=== PATIENT | male | born 1975 | race Caucasian/White ===

== ENCOUNTER 2017-08-20 16:49 | Emergency (ER) | payer MEDICAID ==
[~2017-08-20] VITALS: Ht 172.7 cm; Wt 123.0 kg
[2017-08-20 17:00] VITALS: BP 166/117
== END 2017-08-20 20:30 | disposition left against medical advice (07) ==
LOC: ER 17:28
DX: R06.02 Shortness of breath (principal); Z53.21 Procedure and treatment not carried out due to patient leaving prior to being seen by health care provider

== ENCOUNTER 2018-02-23 08:10 | Emergency (ER) | payer MEDICAID ==
[~2018-02-23] VITALS: Ht 175.3 cm; Wt 108.0 kg
[~2018-02-23 08:10] MED LIST: ASPI-1159 PO; CARV12.545 PO; FURO40TA5 PO; LOSA25TA12 PO
[2018-02-23 09:39] LABS: BASOPHILS % 1.1 % (0.0-2.0); EOSINOPHILS % 2.7 % (0.0-5.0); HEMATOCRIT. 45.8 % (42.0-52.0); HEMOGLOBIN. 15.3 g/dL (14.0-18.0); LYMPHOCYTES % 33.3 % (20.0-50.0); MEAN CORPUSCULAR HEMOGLOBIN 32.2 pg (28.0-32.0); MEAN CORPUSCULAR VOLUME 96.4 fL (80.0-94.0); MEAN PLATELET VOLUME 7.5 fl (7.4-10.4); MONOCYTES % 6.8 % (2.0-8.0); NEUTROPHILS % 56.1 % (40.0-76.0); PLATELET 244 x1000/uL (130-400); RED BLOOD CELL COUNT 4.76 mill/uL (4.7-6.1); RED CELL DISTRIBUTION WIDTH 16.5 % (11.6-14.6)
[2018-02-23] MEDS ORDERED: MAGNESIUM/ALUMINUM HYDROXIDE/SIMETHICONE 30ML UDC PO STA (09:42)
[2018-02-23] MEDS ORDERED: VISCOUS LIDOCAINE 2% 15 ML UDC PO STA (09:42)
[2018-02-23 09:45] LABS: INR 1.4; PROTHROMBIN TIME 14.6 sec (9.4-11.6)
[2018-02-23] MEDS ORDERED: FAMOTIDINE 20MG/2ML VIAL IV ONE (09:45)
[2018-02-23 09:46] LABS: CHLORIDE 105 mEq/L (98-107)
[2018-02-23 13:00] VITALS: BP 157/101
== END 2018-02-23 13:03 | disposition left against medical advice (07) ==
LOC: ER 08:29 → CANBEDREQ 13:05
DX: R07.9 Chest pain, unspecified (principal); I11.0 Hypertensive heart disease with heart failure; I50.9 Heart failure, unspecified; F17.200 Nicotine dependence, unspecified, uncomplicated; E11.9 Type 2 diabetes mellitus without complications; Z79.82 Long term (current) use of aspirin
CPT/HCPCS: 36415; 71045; 80048; 83880; 84484; 85025; 85610; 93005; 96374; 99285

== ENCOUNTER 2018-12-07 08:24 | Inpatient (IN) | payer MEDICAID ==
[~2018-12-07] VITALS: Ht 172.7 cm; Wt 109.8 kg
[2018-12-07] MEDS ORDERED: IPRATROPIUM BROMIDE (0.02%) 0.5MG/2.5ML NEB HHN STA (08:44)
[2018-12-07] MEDS ORDERED: ALBUTEROL (0.083%) 2.5MG/3ML NEB HHN STA (08:44)
[2018-12-07] MEDS ORDERED: LEVOFLOXACIN 750MG PREMIX 150 ML IV ONE (08:45)
[2018-12-07] MEDS ORDERED: FUROSEMIDE 20MG/2ML VIAL IVP ONE (08:45)
[2018-12-07 09:06] LABS: BASOPHILS % 0.8 % (0.0-2.0); HEMATOCRIT. 46.7 % (42.0-52.0); HEMOGLOBIN. 15.6 g/dL (14.0-18.0); LYMPHOCYTES % 25.5 % (20.0-50.0); MEAN CORPUSCULAR HEMOGLOBIN 33.3 pg (28.0-32.0); MEAN CORPUSCULAR VOLUME 100.1 fL (80.0-94.0); MEAN PLATELET VOLUME 7.6 fl (7.4-10.4); MONOCYTES % 14.7 % (2.0-8.0); PLATELET 209 x1000/uL (130-400); RED BLOOD CELL COUNT 4.67 mill/uL (4.7-6.1)
[2018-12-07 09:12] LABS: CHLORIDE 102 mEq/L (98-107)
[2018-12-07 09:27] LABS: D-DIMER 3.69 mg/L FEU (<0.50); INR 1.8; PARTIAL THROMBOPLASTIN TIME 28.2 sec (23.4-31.0); PROTHROMBIN TIME 17.6 sec (9.1-11.1)
[2018-12-07 09:59] LABS: CLARITY URINE CLEAR (CLEAR); COLOR URINE DARK YELLOW (YELLOW); KETONES URINE NEGATIVE (NEGATIVE); LEUKOCYTE ESTERASE URINE NEGATIVE (NEGATIVE); NITRITE URINE NEGATIVE (NEGATIVE); OCCULT BLOOD URINE NEGATIVE (NEGATIVE); PROTEIN URINE 3+ (NEGATIVE); SPECIFIC GRAVITY URINE 1.023 (1.005-1.030)
[2018-12-07] MEDS ORDERED: IPRATROPIUM/ALBUTEROL 0.5-3(2.5)MG/3ML NEB HHN PRN (10:15)
[2018-12-07] MEDS ORDERED: NICOTINE 14MG PATCH TD SCH (10:15)
[2018-12-07] MEDS ORDERED: BUDESONIDE 0.5MG/2ML NEB HHN SCH ×2 (10:15→17:00)
[2018-12-07 10:48] LABS: *AMPHETAMINES SCREEN URINE NEGATIVE (NEGATIVE); *BARBITURATES SCREEN URINE NEGATIVE (NEGATIVE); *BENZODIAZEPINES SCREEN URINE NEGATIVE (NEGATIVE); *COCAINE SCREEN URINE NEGATIVE (NEGATIVE); METHADONE URINE SCREEN NEGATIVE (NEGATIVE); OPIATES URINE SCREEN NEGATIVE (NEGATIVE)
[2018-12-07 10:49] LABS: CANNABINOID URINE SCREEN NEGATIVE (NEGATIVE); PHENCYCLIDINE URINE SCREEN NEGATIVE (NEGATIVE)
[2018-12-07 11:06] LABS: HEPATITIS B SURFACE ANTIGEN NEGATIVE
[2018-12-07 11:46] LABS: HEPATITIS A AB IGM NEGATIVE (NEGATIVE)
[2018-12-07] MEDS ORDERED: IPRATROPIUM/ALBUTEROL 0.5-3(2.5)MG/3ML NEB HHN SCH (12:00)
[2018-12-07] MEDS ORDERED: NA PHOS,M-B/NA PHOS,DI-BA ENEMA 118ML PR PRN (13:00)
[2018-12-07] MEDS ORDERED: ACETAMINOPHEN 325MG TABLET PO PRN (13:00)
[2018-12-07] MEDS ORDERED: MAGNESIUM/ALUMINUM HYDROXIDE/SIMETHICONE 30ML UDC PO PRN (13:00)
[2018-12-07] MEDS ORDERED: DOCUSATE SODIUM 100MG CAPSULE PO PRN (13:00)
[2018-12-07] MEDS ORDERED: LORAZEPAM 0.5MG TABLET PO PRN (13:00)
[2018-12-07] MEDS ORDERED: NITROGLYCERIN 0.4MG TABLET SL SL PRN (13:00)
[2018-12-07] MEDS ORDERED: ENOXAPARIN 40MG/0.4ML SYR SUBCUT SCH (13:00)
[2018-12-07] MEDS ORDERED: CLONIDINE 0.1MG TABLET PO PRN (13:00)
[2018-12-07] MEDS ORDERED: ONDANSETRON HCL 4MG/2ML INJ IV PRN (13:00)
[2018-12-07] MEDS ORDERED: GUAIFENESIN 200MG/10ML SUGAR FREE UDC PO PRN (13:00)
[2018-12-07] MEDS ORDERED: GUAIFENESIN/DM 600MG/30MG ER TAB 12HR PO SCH (13:00)
[2018-12-07] MEDS ORDERED: ZOLPIDEM TARTRATE 5MG TABLET PO PRN (13:00)
[2018-12-07 15:03] LABS: CREATINE KINASE MB FRACTION 5.1 ng/mL (0.5-3.6)
[2018-12-07 15:55] VITALS: BP 127/91
[2018-12-07 16:01] VITALS: BP 127/91
[2018-12-07] MEDS: GUAIFENESIN/DM 600MG/30MG ER TAB 12HR PO SCH (16:49)
[2018-12-07] MEDS: ENOXAPARIN 30MG/0.3ML SYR SUBCUT SCH (16:49)
[2018-12-07] MEDS: NICOTINE 14MG PATCH TD SCH (16:52)
[2018-12-07 20:00] VITALS: BP 125/78
[2018-12-07] MEDS: SPIRONOLACTONE 25MG TABLET PO SCH (20:59)
[2018-12-07] MEDS: IPRATROPIUM/ALBUTEROL 0.5-3(2.5)MG/3ML NEB HHN SCH (23:39)
[2018-12-07 23:59] VITALS: BP 138/89
[2018-12-08 00:51] LABS: CREATINE KINASE MB FRACTION 3.8 ng/mL (0.5-3.6)
[2018-12-08 04:00] VITALS: BP 122/90
[2018-12-08] MEDS: IPRATROPIUM/ALBUTEROL 0.5-3(2.5)MG/3ML NEB HHN SCH ×2 (04:29→08:11)
[2018-12-08] MEDS: ENOXAPARIN 30MG/0.3ML SYR SUBCUT SCH (05:40)
[2018-12-08 08:00] VITALS: BP 148/99
[2018-12-08] MEDS ORDERED: FUROSEMIDE 40MG/4ML VIAL IVP SCH (09:00)
[2018-12-08] MEDS: NICOTINE 14MG PATCH TD SCH (09:00)
[2018-12-08] MEDS ORDERED: AZITHROMYCIN 500 MG TABLET PO SCH (09:00)
[2018-12-08] MEDS ORDERED: ASPIRIN 325MG EC TABLET PO SCH (09:00)
[2018-12-08] MEDS: SPIRONOLACTONE 25MG TABLET PO SCH (09:33)
[2018-12-08] MEDS: GUAIFENESIN/DM 600MG/30MG ER TAB 12HR PO SCH (09:33)
[2018-12-08 10:32] VITALS: BP 148/99
== END 2018-12-08 11:03 | disposition home or self-care (01) | DRG 194 ==
LOC: ER 08:24 → EDBEDREQ 09:58 → 6WST 13:29 → EDBEDREQSVC 13:31 → ENRESERV 14:04
PROVIDERS: ADMIT Internal Medicine; ATTEND Internal Medicine
DX: I11.0 Hypertensive heart disease with heart failure (principal); J96.00 Acute respiratory failure, unspecified whether with hypoxia or hypercapnia; N17.0 Acute kidney failure with tubular necrosis; J44.1 Chronic obstructive pulmonary disease with (acute) exacerbation; D68.9 Coagulation defect, unspecified; E44.1 Mild protein-calorie malnutrition; R17 Unspecified jaundice; I50.43 Acute on chronic combined systolic (congestive) and diastolic (congestive) heart failure; I42.9 Cardiomyopathy, unspecified; D72.821 Monocytosis (symptomatic); E11.9 Type 2 diabetes mellitus without complications; F17.210 Nicotine dependence, cigarettes, uncomplicated; Z68.36 Body mass index [BMI] 36.0-36.9, adult; Z95.810 Presence of automatic (implantable) cardiac defibrillator; Z88.8 Allergy status to other drugs, medicaments and biological substances; Z79.899 Other long term (current) drug therapy
CPT/HCPCS: 36415; 71045; 76700; 78582; 80061; 80305; 82550; 82553; 82962; 83036; 83605; 83880; 84145; 84484; 85379; 86705; 86709; 86803; 87340; 87804; 93005; 93306; 93880; 93970; 94640; 99285; A9558; J1650; J1940; J1956; J7611; J7620; J7626

== ENCOUNTER 2018-12-19 04:27 | Emergency (ER) | payer MEDICAID ==
[~2018-12-19] VITALS: Ht 170.2 cm; Wt 73.0 kg
[2018-12-19 04:37] VITALS: BP 116/90
== END 2018-12-19 08:02 | disposition left against medical advice (07) ==
LOC: ER 04:27
DX: Z53.21 Procedure and treatment not carried out due to patient leaving prior to being seen by health care provider (principal)

== ENCOUNTER 2019-05-29 04:30 | Emergency (ER) | payer MEDICAID ==
[~2019-05-29] VITALS: Ht 172.7 cm; Wt 106.0 kg
[~2019-05-29 04:30] MED LIST changes: -ASPI-1159 PO; +ASPI-1393 PO; -LOSA25TA12 PO; +LOSA25TA26 PO
[2019-05-29 05:45] LABS: MEAN PLATELET VOLUME 7.3 fl (7.4-10.4)
[2019-05-29 05:49] LABS: CHLORIDE 107 mEq/L (98-107)
[2019-05-29 06:09] LABS: HEMATOCRIT. 49.9 % (42.0-52.0); HEMOGLOBIN. 17.3 g/dL (14.0-18.0); MEAN CORPUSCULAR HEMOGLOBIN 33.7 pg (28.0-32.0); MEAN CORPUSCULAR VOLUME 97.4 fL (80.0-94.0); RED BLOOD CELL COUNT 5.12 mill/uL (4.7-6.1); RED CELL DISTRIBUTION WIDTH 16.6 % (11.6-14.6)
[2019-05-29] MEDS ORDERED: FLUORESCEIN SODIUM 1MG/STRIP RIGHTEYE ONE (06:30)
[2019-05-29] MEDS ORDERED: TETRACAINE 0.5% OPHTH DROPS 4ML RIGHTEYE ONE (06:30)
[2019-05-29] MEDS ORDERED: ALBUTEROL (0.5%) 2.5MG/0.5ML NEB HHN ONE (06:45)
[2019-05-29 07:18] LABS: PLATELET ESTIMATE NORMAL
[2019-05-29 07:21] LABS: PLATELET 91 x1000/uL (130-400)
[2019-05-29 07:25] VITALS: BP 134/90
== END 2019-05-29 09:11 | disposition left against medical advice (07) ==
LOC: ER 04:30
DX: R05 Cough (principal); R06.02 Shortness of breath; L29.9 Pruritus, unspecified; R23.8 Other skin changes; I50.9 Heart failure, unspecified; J45.909 Unspecified asthma, uncomplicated
CPT/HCPCS: 36415; 71045; 80053; 83880; 84484; 85025; 93005; 94640; 99284; J7611; Z7610

== ENCOUNTER 2020-12-26 09:45 | Inpatient (IN) | payer MEDICAID ==
[~2020-12-26] VITALS: Ht 172.7 cm; Wt 108.9 kg
[~2020-12-26 09:45] MED LIST changes: -ASPI-1393 PO; +ASPI-1497 PO
[2020-12-26] MEDS ORDERED: FUROSEMIDE 40MG/4ML VIAL IVP ONE (10:15)
[2020-12-26 10:37] LABS: BASOPHILS % 1.5 % (0.0-2.0); EOSINOPHILS % 2.4 % (0.0-5.0); HEMATOCRIT. 45.2 % (42.0-52.0); HEMOGLOBIN. 14.7 g/dL (14.0-18.0); LYMPHOCYTES % 35.4 % (20.0-50.0); MEAN CORPUSCULAR HEMOGLOBIN 32.1 pg (28.0-32.0); MEAN CORPUSCULAR VOLUME 98.8 fL (80.0-94.0); MEAN PLATELET VOLUME 7.3 fl (7.4-10.4); MONOCYTES % 7.9 % (2.0-8.0); NEUTROPHILS % 52.8 % (40.0-76.0); PLATELET 191 x1000/uL (130-400); RED BLOOD CELL COUNT 4.58 mill/uL (4.7-6.1); RED CELL DISTRIBUTION WIDTH 19.3 % (11.6-14.6)
[2020-12-26 10:44] LABS: CHLORIDE 103 mEq/L (98-107)
[2020-12-26] MEDS: POTASSIUM CHLORIDE 20MEQ TABLET SR PO SCH (13:06)
[2020-12-26] MEDS: CARVEDILOL 3.125 MG TABLET PO SCH ×2 (13:30→21:14)
[2020-12-26] MEDS ORDERED: MAGNESIUM/ALUMINUM HYDROXIDE/SIMETHICONE 30ML UDC PO PRN (14:00)
[2020-12-26] MEDS ORDERED: ACETAMINOPHEN 325MG TABLET PO PRN (14:00)
[2020-12-26] MEDS ORDERED: DOCUSATE SODIUM 100MG CAPSULE PO PRN (14:00)
[2020-12-26] MEDS ORDERED: HYDROCODONE/ACETAMINOPHEN 5/325MG TABLET PO PRN (14:00)
[2020-12-26] MEDS ORDERED: CLONIDINE 0.1MG TABLET PO PRN (14:00)
[2020-12-26] MEDS ORDERED: ENOXAPARIN 40MG/0.4ML SYR SUBCUT SCH (14:00)
[2020-12-26] MEDS ORDERED: ONDANSETRON HCL 4MG/2ML INJ IV PRN (14:00)
[2020-12-26 14:52] VITALS: BP 115/68
[2020-12-26 14:55] VITALS: BP 115/68
[2020-12-26] MEDS ORDERED: ALBU6.7H9 INH (15:16)
[2020-12-26] MEDS ORDERED: ALBUTEROL 6.7GM HFA INHALER ORI PRN (16:15)
[2020-12-26 16:20] VITALS: BP 120/69
[2020-12-26] MEDS: FUROSEMIDE 40MG/4ML VIAL IVP SCH (17:20)
[2020-12-26 20:10] LABS: CLARITY URINE CLEAR (CLEAR); COLOR URINE YELLOW (YELLOW); KETONES URINE NEGATIVE (NEGATIVE); LEUKOCYTE ESTERASE URINE NEGATIVE (NEGATIVE); NITRITE URINE NEGATIVE (NEGATIVE); OCCULT BLOOD URINE NEGATIVE (NEGATIVE); PH URINE 6.5 (4.5-8.0); PROTEIN URINE NEGATIVE (NEGATIVE); SPECIFIC GRAVITY URINE 1.007 (1.005-1.030)
[2020-12-26 20:27] VITALS: BP 132/86
[2020-12-26 20:55] LABS: *COCAINE SCREEN URINE NEGATIVE (NEGATIVE)
[2020-12-26 20:56] LABS: *AMPHETAMINES SCREEN URINE NEGATIVE (NEGATIVE); *BARBITURATES SCREEN URINE NEGATIVE (NEGATIVE); *BENZODIAZEPINES SCREEN URINE NEGATIVE (NEGATIVE); CANNABINOID URINE SCREEN NEGATIVE (NEGATIVE); METHADONE URINE SCREEN NEGATIVE (NEGATIVE); OPIATES URINE SCREEN NEGATIVE (NEGATIVE); PHENCYCLIDINE URINE SCREEN NEGATIVE (NEGATIVE)
[2020-12-26] MEDS: ENOXAPARIN 30MG/0.3ML SYR SUBCUT SCH ×2 (21:00→21:14)
[2020-12-27] VITALS: BP 111/83
[2020-12-27] MEDS: IPRATROPIUM/ALBUTEROL 0.5-3(2.5)MG/3ML NEB HHN PRN ×2 (03:59→18:33)
[2020-12-27 04:00] VITALS: BP 127/94
[2020-12-27] MEDS: FUROSEMIDE 40MG/4ML VIAL IVP SCH ×2 (06:19→17:28)
[2020-12-27 06:41] LABS: BASOPHILS % 1.4 % (0.0-2.0); EOSINOPHILS % 1.5 % (0.0-5.0); HEMATOCRIT. 42.7 % (42.0-52.0); HEMOGLOBIN. 14.2 g/dL (14.0-18.0); LYMPHOCYTES % 38.2 % (20.0-50.0); MEAN CORPUSCULAR HEMOGLOBIN 32.1 pg (28.0-32.0); MEAN CORPUSCULAR VOLUME 96.8 fL (80.0-94.0); MEAN PLATELET VOLUME 8.3 fl (7.4-10.4); MONOCYTES % 9.7 % (2.0-8.0); NEUTROPHILS % 49.2 % (40.0-76.0); PLATELET 143 x1000/uL (130-400); RED BLOOD CELL COUNT 4.41 mill/uL (4.7-6.1); RED CELL DISTRIBUTION WIDTH 19.1 % (11.6-14.6)
[2020-12-27] MEDS: OMEPRAZOLE 20MG CAPSULE EXTENDED RELEASE PO SCH (07:15)
[2020-12-27 07:54] LABS: PHOSPHORUS 3.4 mg/dL (2.5-4.9)
[2020-12-27 08:05] VITALS: BP 96/74
[2020-12-27] MEDS: CARVEDILOL 3.125 MG TABLET PO SCH ×2 (08:30→20:34)
[2020-12-27] MEDS: ENOXAPARIN 30MG/0.3ML SYR SUBCUT SCH ×2 (09:00→20:29)
[2020-12-27] MEDS: POTASSIUM CHLORIDE 20MEQ TABLET SR PO SCH (10:02)
[2020-12-27 12:00] VITALS: BP 119/81
[2020-12-27 13:10] LABS: HEPATITIS B SURFACE ANTIGEN NEGATIVE
[2020-12-27 13:36] LABS: HEPATITIS A AB IGM NEGATIVE (NEGATIVE)
[2020-12-27 16:16] VITALS: BP 129/97
[2020-12-27 20:37] VITALS: BP 121/86
[2020-12-28] VITALS: BP 136/86
[2020-12-28 04:00] VITALS: BP 124/78
[2020-12-28] MEDS: OMEPRAZOLE 20MG CAPSULE EXTENDED RELEASE PO SCH (05:45)
[2020-12-28] MEDS: FUROSEMIDE 40MG/4ML VIAL IVP SCH (06:20)
[2020-12-28 07:14] LABS: EOSINOPHILS % 1.1 % (0.0-5.0); HEMATOCRIT. 45.6 % (42.0-52.0); HEMOGLOBIN. 14.6 g/dL (14.0-18.0); LYMPHOCYTES % 42.8 % (20.0-50.0); MEAN CORPUSCULAR HEMOGLOBIN 31.1 pg (28.0-32.0); MEAN CORPUSCULAR VOLUME 97.3 fL (80.0-94.0); MEAN PLATELET VOLUME 8.1 fl (7.4-10.4); MONOCYTES % 11.2 % (2.0-8.0); NEUTROPHILS % 43.9 % (40.0-76.0); PLATELET 166 x1000/uL (130-400); RED BLOOD CELL COUNT 4.69 mill/uL (4.7-6.1); RED CELL DISTRIBUTION WIDTH 19.3 % (11.6-14.6)
[2020-12-28 07:59] LABS: PHOSPHORUS 3.2 mg/dL (2.5-4.9)
[2020-12-28 08:00] VITALS: BP 125/85
[2020-12-28] MEDS: ENOXAPARIN 30MG/0.3ML SYR SUBCUT SCH (09:00)
[2020-12-28] MEDS: CARVEDILOL 3.125 MG TABLET PO SCH (09:15)
[2020-12-28] MEDS: POTASSIUM CHLORIDE 20MEQ TABLET SR PO SCH (09:15)
[2020-12-28] MEDS ORDERED: FURO-151 MT (11:42)
[2020-12-28] MEDS ORDERED: LOSA25TA26 MT (11:42)
[2020-12-28] MEDS ORDERED: POTA20TA82 PO (11:42)
[2020-12-28] MEDS ORDERED: CARV12.545 MT (11:42)
[2020-12-28 12:00] VITALS: BP 116/86
[2020-12-28 14:14] VITALS: BP 116/86
[2020-12-28 16:00] VITALS: BP 126/84
[2020-12-28] MEDS ORDERED: FAMOTIDINE 20MG TABLET PO SCH (21:00)
[2020-12-28] MEDS ORDERED: CARVEDILOL 6.25 MG TABLET PO SCH (21:00)
== END 2020-12-28 16:50 | disposition home or self-care (01) | DRG 133 ==
LOC: ER 09:54 → 5WST 12:16 → ENRESERV 13:18 → 7WST 14:13 → 5WST 22:07
PROVIDERS: ADMIT Internal Medicine; ATTEND Internal Medicine
DX: J96.00 Acute respiratory failure, unspecified whether with hypoxia or hypercapnia (principal); D70.9 Neutropenia, unspecified; I11.0 Hypertensive heart disease with heart failure; I27.20 Pulmonary hypertension, unspecified; I42.9 Cardiomyopathy, unspecified; I50.9 Heart failure, unspecified; J44.9 Chronic obstructive pulmonary disease, unspecified; N17.9 Acute kidney failure, unspecified; K70.9 Alcoholic liver disease, unspecified; R74.01 Elevation of levels of liver transaminase levels; E80.6 Other disorders of bilirubin metabolism; Z20.822 Contact with and (suspected) exposure to COVID-19; Z95.810 Presence of automatic (implantable) cardiac defibrillator; Z88.2 Allergy status to sulfonamides; Z88.8 Allergy status to other drugs, medicaments and biological substances; Z79.84 Long term (current) use of oral hypoglycemic drugs; Z79.899 Other long term (current) drug therapy; R65.11 Systemic inflammatory response syndrome (SIRS) of non-infectious origin with acute organ dysfunction
CPT/HCPCS: 36415; 71045; 76705; 80048; 80053; 80061; 80076; 80305; 81003; 82248; 83735; 83880; 84100; 84443; 84450; 84484; 85025; 86705; 86709; 86803; 87340; 93005; 93306; 94640; 99291; J1650; J1940; U0003

== ENCOUNTER 2025-06-20 07:33 | Inpatient (IN) | payer OTHER, MEDICAID ==
[~2025-06-20] VITALS: Ht 170.2 cm; Wt 101.2 kg
[~2025-06-20 07:33] MED LIST changes: +ALBU6.7H3 INH; +CARV12.545 MT; +FURO-151 MT; +LOSA25TA26 MT; +POTA-204 PO; +RIVA10TA PO; +SACU1TAB PO
[2025-06-20] MEDS: MORPHINE SULFATE 4 MG/ML INJ (FOR IV/IM USE) IV ONE (08:07)
[2025-06-20 08:10] LABS: BASOPHILS % 0.6 % (0.0-2.0); EOSINOPHILS % 2.1 % (0.0-5.0); HEMATOCRIT. 47.6 % (42.0-52.0); HEMOGLOBIN. 15.8 g/dL (14.0-18.0); LYMPHOCYTES % 31.0 % (20.0-50.0); MEAN PLATELET VOLUME 7.6 fl (7.4-10.4); MONOCYTES % 10.8 % (2.0-8.0); NEUTROPHILS % 55.5 % (40.0-76.0); PLATELET 217 x1000/uL (130-400); RED BLOOD CELL COUNT 5.09 mill/uL (4.7-6.1); RED CELL DISTRIBUTION WIDTH 14.2 % (11.6-14.6)
[2025-06-20 08:27] LABS: CREATININE 1.4 mg/dL (0.6-1.3); TROPONIN I HIGH SENSITIVITY 24 ng/L (3.0-53)
[2025-06-20 08:28] LABS: UREA NITROGEN BLOOD 14 mg/dL (9-23)
[2025-06-20 08:29] LABS: ASPARTATE AMINOTRANSFERASE 38 IU/L (<34)
[2025-06-20 08:30] LABS: BILIRUBIN DIRECT 0.2 mg/dL (<=3.0); BILIRUBIN TOTAL 0.7 mg/dL (0.1-1.0); PROTEIN TOTAL 7.4 g/dL (6.0-8.3)
[2025-06-20] MEDS ORDERED: IOHEXOL-350 100 ML BOTTLE ONE (09:08)
[2025-06-20 10:16] LABS: TROPONIN I HIGH SENSITIVITY 22 ng/L (3.0-53)
[2025-06-20] MEDS: FUROSEMIDE 40MG TABLET PO SCH (10:28)
[2025-06-20] MEDS: HYDROCODONE/ACETAMINOPHEN 5/325MG TABLET PO PRN (10:28)
[2025-06-20] MEDS: PANTOPRAZOLE 40MG DR TABLET PO SCH (10:28)
[2025-06-20] MEDS ORDERED: NALOXONE HCL 0.4MG/ML VIAL IV PRN (10:30)
[2025-06-20] MEDS ORDERED: ONDANSETRON HCL 4MG/2ML INJ IV PRN (10:30)
[2025-06-20 12:00] VITALS: BP 155/86; PULSE 65; RESP 18; TEMP 36.2512
[2025-06-20] MEDS: KETOROLAC 15MG/ML VIAL IV NR (14:34)
[2025-06-20 16:00] VITALS: BP 124/60; PULSE 77; RESP 18; TEMP 36.2; O2SAT 97
[2025-06-20 16:55] LABS: TROPONIN I HIGH SENSITIVITY 18 ng/L (3.0-53)
[2025-06-20] MEDS ORDERED: KETO15CR2 TP (18:20)
[2025-06-20] MEDS ORDERED: HYDR-4346 MT (18:20)
[2025-06-20] MEDS ORDERED: ALLO100T MT (18:20)
[2025-06-20] MEDS ORDERED: TERB30CR8 TP (18:20)
[2025-06-20] MEDS ORDERED: ACET-2708 MT (18:20)
[2025-06-20] MEDS ORDERED: CARV12.545 PO (18:20)
[2025-06-20] MEDS ORDERED: SILD20TA41 PO (18:20)
[2025-06-20] MEDS ORDERED: DAPA10TA PO (18:20)
[2025-06-20] MEDS ORDERED: EPLE25TA22 PO (18:20)
[2025-06-20] MEDS ORDERED: SACU1TAB MT (18:20)
[2025-06-20] MEDS ORDERED: ATOR-2 MT (18:20)
[2025-06-20] MEDS ORDERED: SEMA2PEN (18:20)
[2025-06-20] MEDS ORDERED: ASPI-1497 PO (18:21)
[2025-06-20 20:00] VITALS: BP 138/81; PULSE 84; RESP 18; TEMP 36.5; O2SAT 96
[2025-06-20] MEDS: SACUBITRIL/VALSARTAN 24MG/26MG TABLET PO SCH (21:12)
[2025-06-20] MEDS: CARVEDILOL 12.5MG TABLET PO SCH (21:13)
[2025-06-21] VITALS: BP 121/65; PULSE 86; RESP 20; TEMP 36.6; O2SAT 100
[2025-06-21 04:00] VITALS: BP 116/69; PULSE 81; RESP 19; TEMP 36.4; O2SAT 99
[2025-06-21 08:00] VITALS: BP 123/64; PULSE 81; RESP 19; TEMP 36.8; O2SAT 96
[2025-06-21] MEDS: POTASSIUM CHLORIDE 20MEQ TABLET SR PO SCH (08:59)
[2025-06-21] MEDS: KETOROLAC 15MG/ML VIAL IV PRN (11:57)
[2025-06-21 12:00] VITALS: BP 115/68; PULSE 84; RESP 17; TEMP 36.3; O2SAT 96
[2025-06-21 16:00] VITALS: BP 126/74; PULSE 85; RESP 18; TEMP 36.8; O2SAT 96
[2025-06-21] MEDS: HYDROMORPHONE HCL/PF 2MG/ML INJ IV PRN (19:05)
[2025-06-21] MEDS: PANTOPRAZOLE SODIUM 40 MG/VIAL IV SCH (19:06)
[2025-06-21] MEDS: LACTATED RINGERS 1,000 ML IV SCH (19:06)
[2025-06-21 20:00] VITALS: BP 119/74; PULSE 86; RESP 17; TEMP 36.4; O2SAT 97
[2025-06-21] MEDS: KCL 10MEQ/50ML PREMIX 50 ML IV SCH (20:12)
[2025-06-21 22:04] LABS: HEMATOCRIT. 46.1 % (42.0-52.0); HEMOGLOBIN. 15.5 g/dL (14.0-18.0); MEAN PLATELET VOLUME 8.5 fl (7.4-10.4); PLATELET 192 x1000/uL (130-400); RED BLOOD CELL COUNT 4.92 mill/uL (4.7-6.1); RED CELL DISTRIBUTION WIDTH 14.3 % (11.6-14.6)
[2025-06-21 22:22] LABS: CREATININE 1.3 mg/dL (0.6-1.3)
[2025-06-21 22:23] LABS: UREA NITROGEN BLOOD 12 mg/dL (9-23)
[2025-06-21 22:24] LABS: ASPARTATE AMINOTRANSFERASE 36 IU/L (<34)
[2025-06-21 22:25] LABS: BILIRUBIN TOTAL 1.8 mg/dL (0.1-1.0); PROTEIN TOTAL 7.5 g/dL (6.0-8.3)
[2025-06-21] MEDS: PIPERACILLIN/TAZO 3.375G/50ML 50 ML IV SCH (22:37)
[2025-06-21 22:38] LABS: BAND% 1.0 % (1.0-6.0); LYMPHOCYTES % MANUAL 4.0 % (20.0-50.0); MONOCYTES % MANUAL 4.0 % (2.0-8.0); NEUTROPHILS % MANUAL 91.0 % (45.0-75.0); PLATELET ESTIMATE NORMAL
[2025-06-21 23:00] LABS: HEPATITIS A AB IGM NEGATIVE (Negative)
[2025-06-21 23:01] LABS: HEPATITIS B CORE AB IGM NEGATIVE (Negative); HEPATITIS C AB NON REACTIVE (Neg) (Negative)
[2025-06-22] VITALS (7 sets, daily range): BP systolic 101–125; BP diastolic 60–88; PULSE 78–90; RESP 16–20; TEMP 36.1–36.4; O2SAT 90–99
[2025-06-22 07:39] LABS: HEMATOCRIT. 45.8 % (42.0-52.0); HEMOGLOBIN. 15.1 g/dL (14.0-18.0); MEAN PLATELET VOLUME 8.3 fl (7.4-10.4); PLATELET 152 x1000/uL (130-400); RED BLOOD CELL COUNT 4.85 mill/uL (4.7-6.1); RED CELL DISTRIBUTION WIDTH 14.5 % (11.6-14.6)
[2025-06-22 07:50] LABS: CREATININE 1.3 mg/dL (0.6-1.3); UREA NITROGEN BLOOD 11 mg/dL (9-23)
[2025-06-22 07:51] LABS: ASPARTATE AMINOTRANSFERASE 24 IU/L (<34)
[2025-06-22 07:52] LABS: BILIRUBIN DIRECT 0.7 mg/dL (<=3.0); BILIRUBIN TOTAL 1.9 mg/dL (0.1-1.0); PROTEIN TOTAL 7.1 g/dL (6.0-8.3)
[2025-06-22] MEDS ORDERED: DEXTROSE 50% WATER 50ML SYRINGE IV PRN (09:30)
[2025-06-22] MEDS: IPRATROPIUM/ALBUTEROL 0.5-3(2.5)MG/3ML NEB HHN PRN (09:51)
[2025-06-22] MEDS: BUMETANIDE 1MG/4ML VIAL IV SCH (10:15)
[2025-06-22] MEDS: INSULIN LISPRO 100 UNITS/ML SUBCUT SCH (12:50)
[2025-06-22 13:14] LABS: BG BASE EXCESS 6.6 mmol/L (-2.0-3.0); BG CARBOXYHEMOGLOBIN 1.2 % (0.5-1.5); BG DEOXYHEMOGLOBIN 7.1 % (0.0-5.0); BG FRACTION INSPIRED OXYGEN 21; BG HCO3 ACT 30.9 mmol/L (21.0-28.0); BG METHEMOGLOBIN 0.3 % (0.5-1.5); BG OXYGEN SATURATION 92.8 % (94.0-98.0); BG OXYHEMOGLOBIN 91.4 % (94.0-98.0); BG PCO2 42.9 mmHg (35.0-48.0); BG PH 7.476 (7.350-7.450); BG PO2 61.3 mmHg (83.0-108.0); BG SAMPLE SITE RIGHT RADIAL; BG TOTAL HEMOGLOBIN 15.9 g/dL (13.5-17.5); BG VENT MODE ROOM AIR
[2025-06-22] MEDS: BLOOD SUGAR DIAGNOSTIC STRIP TEST SCH (13:19)
[2025-06-22 17:44] LABS: LYMPHOCYTES % MANUAL 9.0 % (20.0-50.0); MONOCYTES % MANUAL 11.0 % (2.0-8.0); NEUTROPHILS % MANUAL 80.0 % (45.0-75.0); PLATELET ESTIMATE NORMAL
[2025-06-23] VITALS: BP 105/61; PULSE 79; RESP 19; TEMP 36.7; O2SAT 98
[2025-06-23 04:00] VITALS: BP 121/74; PULSE 89; RESP 19; TEMP 36.8; O2SAT 98
[2025-06-23] MEDS ORDERED: ACETAMINOPHEN 650MG/20.3ML UDC PO PRN (05:30)
[2025-06-23] MEDS: ACETAMINOPHEN 325MG TABLET PO PRN (05:30)
[2025-06-23 08:00] VITALS: BP_SYST 102; BP_SYST 121; BP_DIAS 64; BP_DIAS 89; PULSE 78; PULSE 80; RESP 18; TEMP 35.9; TEMP 36.5; O2SAT 100; O2SAT 94
[2025-06-23] MEDS: FAMOTIDINE 20MG TABLET PO SCH (10:14)
[2025-06-23 11:15] LABS: BASOPHILS % 0.3 % (0.0-2.0); EOSINOPHILS % 1.4 % (0.0-5.0); HEMATOCRIT. 42.9 % (42.0-52.0); HEMOGLOBIN. 14.3 g/dL (14.0-18.0); LYMPHOCYTES % 7.3 % (20.0-50.0); MEAN PLATELET VOLUME 8.4 fl (7.4-10.4); MONOCYTES % 9.2 % (2.0-8.0); NEUTROPHILS % 81.8 % (40.0-76.0); PLATELET 186 x1000/uL (130-400); RED BLOOD CELL COUNT 4.58 mill/uL (4.7-6.1); RED CELL DISTRIBUTION WIDTH 14.1 % (11.6-14.6)
[2025-06-23 11:27] LABS: CREATININE 1.4 mg/dL (0.6-1.3)
[2025-06-23 11:28] LABS: UREA NITROGEN BLOOD 16 mg/dL (9-23)
[2025-06-23 11:29] LABS: ASPARTATE AMINOTRANSFERASE 72 IU/L (<34)
[2025-06-23 11:30] LABS: BILIRUBIN TOTAL 2.0 mg/dL (0.1-1.0); PROTEIN TOTAL 7.1 g/dL (6.0-8.3)
[2025-06-23 12:00] VITALS: BP 109/64; PULSE 81; RESP 18; TEMP 36.7; O2SAT 95
[2025-06-23] MEDS: KCL 20MEQ/100ML PREMIX 100 ML IV SCH (12:30)
[2025-06-23 16:00] VITALS: BP 108/66; PULSE 88; RESP 16; TEMP 36.5; O2SAT 95
[2025-06-23 20:00] VITALS: BP 112/78; PULSE 86; RESP 18; TEMP 36.6; O2SAT 96
[2025-06-24] VITALS: BP 127/89; PULSE 87; RESP 18; TEMP 36.7; O2SAT 97
[2025-06-24 03:53] VITALS: PULSE 80; RESP 20; O2SAT 94
[2025-06-24 04:00] VITALS: BP 110/62; PULSE 86; RESP 18; TEMP 36.4; O2SAT 97
[2025-06-24 08:00] VITALS: BP 139/79; PULSE 90; RESP 16; TEMP 36.5; O2SAT 98
[2025-06-24 08:36] LABS: BASOPHILS % 0.2 % (0.0-2.0); EOSINOPHILS % 1.7 % (0.0-5.0); HEMATOCRIT. 42.3 % (42.0-52.0); HEMOGLOBIN. 14.2 g/dL (14.0-18.0); LYMPHOCYTES % 13.1 % (20.0-50.0); MEAN PLATELET VOLUME 7.8 fl (7.4-10.4); MONOCYTES % 6.6 % (2.0-8.0); NEUTROPHILS % 78.4 % (40.0-76.0); PLATELET 227 x1000/uL (130-400); RED BLOOD CELL COUNT 4.51 mill/uL (4.7-6.1); RED CELL DISTRIBUTION WIDTH 14.0 % (11.6-14.6)
[2025-06-24 08:58] LABS: CREATININE 1.1 mg/dL (0.6-1.3)
[2025-06-24 08:59] LABS: UREA NITROGEN BLOOD 12 mg/dL (9-23)
[2025-06-24 09:00] LABS: ASPARTATE AMINOTRANSFERASE 87 IU/L (<34); PROTEIN TOTAL 7.1 g/dL (6.0-8.3)
[2025-06-24 09:01] LABS: BILIRUBIN DIRECT 0.7 mg/dL (<=3.0); BILIRUBIN TOTAL 1.6 mg/dL (0.1-1.0)
[2025-06-24 14:05] VITALS: BP 130/66; PULSE 90; RESP 16
== END 2025-06-24 15:35 | disposition left against medical advice (07) | DRG 444 ==
LOC: ER 07:33 → 6WST 09:54 → EDBEDREQTM 10:00 → EDBEDREQ 10:00 → ENRESERV 11:27
PROVIDERS: ADMIT Internal Medicine; ATTEND Internal Medicine
DX: K80.01 Calculus of gallbladder with acute cholecystitis with obstruction (principal); I50.23 Acute on chronic systolic (congestive) heart failure; N17.0 Acute kidney failure with tubular necrosis; I11.0 Hypertensive heart disease with heart failure; K80.50 Calculus of bile duct without cholangitis or cholecystitis without obstruction; E87.6 Hypokalemia; E66.9 Obesity, unspecified; Z53.29 Procedure and treatment not carried out because of patient's decision for other reasons; Z79.82 Long term (current) use of aspirin; Z86.73 Personal history of transient ischemic attack (TIA), and cerebral infarction without residual deficits; Z88.2 Allergy status to sulfonamides; Z95.810 Presence of automatic (implantable) cardiac defibrillator; Z68.34 Body mass index [BMI] 34.0-34.9, adult
CPT/HCPCS: 36415; 36600; 71045; 71275; 74174; 76700; 76705; 78227; 80048; 80053; 80076; 82150; 82375; 82805; 82962; 83036; 83735; 84484; 85025; 86705; 86709; 87340; 93005; 93880; 94070; 94640; 99291; A4606; A9537; J1171; J1815; J1885; J2270; J2470; J2543; J3480; J3490; J7120; Q9967